=== PATIENT | male | born 1980 | race Caucasian/White ===

== ENCOUNTER → 2016-07-23 | Outpatient (CLI) | payer OTHER ==
[~2016-07-23] MED LIST: CLON2TAB3 PO; GABA-112 PO
[2016-07-23 11:27] LABS: BASO % 0.4 %; BASO ABS # 0.02 K/uL (0-0.2); COMPLETE YES; EOS % 1.6 %; HEMATOCRIT 43.4 % (42-52); IG% 0.2 %; LYMPH % 25.8 %; LYMPH ABS # 1.47 K/uL (1.2-3.4); MEAN CELL VOLUME 81.6 fL (80-100); MEAN CORPUSCULAR HEMOGLOBIN 28.6 pg (25-34); MONO % 7.4 %; NEUT % 64.6 %; PLATELET COUNT 191 K/uL (130-400); RED BLOOD COUNT 5.32 M/uL (4.7-6.1); WHITE BLOOD COUNT 5.69 K/uL (4.8-10.8)
== END | disposition home or self-care (01) ==
LOC: C.LABBC 09:28
PROVIDERS: ATTEND Orthopaedic Surgery Sports Medicine
DX: Z01.812 Encounter for preprocedural laboratory examination (principal)

== ENCOUNTER 2016-07-29 06:44 | Inpatient (IN) | payer OTHER, BC ==
[2016-07-21 09:16] VITALS: BMI 31.0
--- NOTE | 2016-07-28 13:17 | HISTORY & PHYSICAL EXAMINATION ---
DATE OF ADMISSION: 07/29/2016 CHIEF COMPLAINT: Back pain, right lower leg extremity difficulty. 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 He had a work-related injury on 04/04/2015 resulting in surgery and a re-do surgery in November of this year. He has done better after the initial surgery. However, he has had recurrence of his symptoms. He has on ongoing right-sided radicular symptoms consistent with his history. PAST MEDICAL HISTORY: Benign. PAST SURGICAL HISTORY: Includes right and left knee scope, hand surgery, discectomy and nasal surgery. ALLERGIES: No allergies to medications. CURRENT MEDICATIONS: None. FAMILY HISTORY: Negative for heart disease, stroke, diabetes, blood clots, DVTs or cancer. SOCIAL HISTORY: He is . Drinks 1-2 drinks a day. No tobacco very active lifestyle. REVIEW OF SYSTEMS: PSYCHIATRIC: Positive for sleep problems. NEUROLOGIC: Positive for numbness and tingling. MUSCULOSKELETAL: Positive for stiffness, weakness and muscle pain. PHYSICAL EXAMINATION: CONSTITUTIONAL: Alert and oriented x3. VITAL SIGNS: He is 5 foot 9 inches, 205 pounds. CARDIOVASCULAR: Brisk capillary refill in distal extremities. Normal S1, S2, no S3. RESPIRATORY: Equal and bilateral breath sounds. No rales, rhonchi or wheezes noted. GASTROINTESTINAL: Abdomen is soft, nontender to palpation and percussion. No organomegaly. INTEGUMENTARY: No skin rashes or lesions, ecchymosis or swelling. MUSCULOSKELETAL: Slight weakness with dorsiflexion of his right great toe. Sensory is slightly decreased as well. Reflex of his patella and Achilles were normal. He does have pain with straight leg raise on the right side versus the left. DATA: Diagnostic x-rays and images demonstrated a near collapse at L4-L5 lumbar interval. No scoliosis or spondylosis was noted. ASSESSMENT AND DIAGNOSES: Near collapse of the L4-L5 vertebral height with nerve root compromise. PLAN: At this time, he is being preoperatively prepared for a PLIF procedure at L4-L5. All his questions were reviewed and answered. We did discuss the surgery, expected outcomes as well. We did give him a back brace postoperatively. We gave him pain meds prior to admission to the hospital as well. The surgery is scheduled for 07/29/2016. Expect him 1-2 days in the hospital as an observation status.
[2016-07-29] VITALS (11 sets, daily range): BP systolic 105–148; BP diastolic 65–88; PULSE 80–120; TEMP 36.4–37; O2SAT 94–99; Ht 175.3 cm; Wt 95.5 kg
[~2016-07-29] VITALS: Ht 175.3 cm; Wt 95.5 kg
[~2016-07-29 06:44] MED LIST changes: +CEFAZOLIN 2000 MG/60 ML D5W 60 ML IV SCH; -CLON2TAB3 PO; +LACTATED RINGER'S 1000ML 1,000 ML IV SCH; +NSS 1000ML IV SCH
[2016-07-29] MEDS ORDERED: CLON2TAB3 PO (07:20)
[2016-07-29] MEDS ORDERED: ROCURONIUM BROMIDE 10 MG/ML 5 ML VIAL ONE (07:46)
[2016-07-29] MEDS ORDERED: PROPOFOL IV EMULSION 10 MG/ML 20 ML VIAL IV ONE (07:46)
[2016-07-29] MEDS ORDERED: NEOSTIGMINE METHYLSULFATE 5 MG/5 ML SYR ONE (07:46)
[2016-07-29] MEDS ORDERED: FENTANYL CITRATE INJ 50 MCG/1 ML 2 ML VIAL ONE ×3 (07:46→11:03)
[2016-07-29] MEDS ORDERED: ONDANSETRON INJ 2 MG/ML 2 ML VIAL ONE (07:46)
[2016-07-29] MEDS ORDERED: GLYCOPYRROLATE INJ 0.2 MG/ML VIAL ONE (07:46)
[2016-07-29] MEDS ORDERED: LIDOCAINE HCL 2% 2 ML VIAL (20MG/ML) ONE (07:46)
[2016-07-29] MEDS ORDERED: DEXAMETHASONE SOD INJ 4 MG/ML VIAL ONE (07:46)
[2016-07-29] MEDS ORDERED: MIDAZOLAM HCL 1 MG/ML 2ML VIAL ONE ×2 (07:46→11:04)
--- NOTE | 2016-07-29 07:56 | History & Physical Bridge Note ---
H&P Re-Evaluation Bridge Note: I have examined the patient, reviewed the History & Physical and in the interval since the performance of the History & Physical I have noted the following changes of clinical significance: No changes noted
[2016-07-29] MEDS ORDERED: HYDROmorphone INJ 2 MG/ML SYR/VIAL ONE (08:31)
[2016-07-29] MEDS ORDERED: ONDANSETRON INJ 2 MG/ML 2 ML VIAL IV PRN (09:15)
[2016-07-29] MEDS ORDERED: ATROPINE SULFATE 0.1 MG/ML 5ML SYR IV PRN (09:15)
[2016-07-29] MEDS ORDERED: EpHEDrine SULFATE INJ 50 MG/ML AMP IV PRN (09:15)
[2016-07-29] MEDS ORDERED: MEPERIDINE HCL 25 MG/ML CARP IV PRN (09:15)
[2016-07-29] MEDS ORDERED: NALOXONE HCL 0.4 MG/1 ML VIAL/CARP IV PRN ×2 (09:15→11:00)
[2016-07-29] MEDS ORDERED: FLUMAZENIL 0.1 MG/1 ML 10 ML VIAL IV PRN (09:15)
[2016-07-29] MEDS ORDERED: LABETALOL HCL IV 5 MG/ML 20ML IV PRN (09:15)
[2016-07-29] MEDS ORDERED: PHENYLEPHRINE 100MCG/ML 5ML SYR IV PRN (09:15)
[2016-07-29] MEDS ORDERED: EpHEDrine SULFATE 50MG/5ML SYR ONE (09:58)
[2016-07-29] MEDS ORDERED: VANCOMYCIN HCL 1000MG/20ML VIAL TOP ONE (10:02)
[2016-07-29] MEDS ORDERED: BUPIVACAINE/EPINEPHRINE 0.5% MPF 1:200,000 30 ML VIAL INJ ONE (10:02)
[2016-07-29] MEDS ORDERED: BACITRACIN 50000 UNIT VIAL IR ONE (10:25)
[2016-07-29] MEDS ORDERED: THROMBIN FOR SOLN 20000 UNIT KIT TOP ONE (10:25)
[2016-07-29] MEDS ORDERED: GELATIN SPONGE SZ 100 TOP ONE (10:25)
[2016-07-29] MEDS ORDERED: DURASEAL DURAL SEALANT 5ML TOP ONE (10:32)
--- NOTE | 2016-07-29 10:38 | DIAGNOSTIC IMAGING REPORT ---
INTRAOPERATIVE RADIOGRAPH CLINICAL HISTORY: L4-L5 spinal fusion. Fluoroscopy time: 7 seconds. FINDINGS: A single spot fluoroscopic view of the lumbar spine is presented. There is evidence of discectomy at L4-L5 with laminectomy and posterior fusion at this level. Interpedicular screws are present at both levels. Orthopedic hardware is grossly intact. IMPRESSION: Intraoperative image from L4 -L5 spinal fusion as above. Electronically signed by: Dave Tan M.D. 07/29/2016 10:36 AM Dictated Date/Time: 07/29/2016 10:35 AM
[2016-07-29] MEDS ORDERED: SODIUM CHLORIDE 0.9% 1000ML 1,000 ML IV SCH (10:50)
--- NOTE | 2016-07-29 10:52 | [facility] Post Operative Brief Note ---
Immediate Operative Summary Operative Date Jul 29, 2016. Pre-Operative Diagnosis Near collapse of the L4-L5 vertebral height with nerve root compromise. Post-Operative Diagnosis Same as preoperative Procedure(s) Performed L4-5 Decompression and Fusion Surgeon Dr. Kyle Bergeron Historian Research Assistant Surgeon(s) Joaquin Guillen PA-C Estimated Blood Loss 400ml Findings stenosis, instability Specimens None per surgeon Complication(s) None Disposition Recovery Room / PACU
[2016-07-29] MEDS ORDERED: HYDROmorphone HCL 0.5MG/ML 50 ML CASSETTE ONE (10:58)
[2016-07-29] MEDS ORDERED: LORAZEPAM INJ 1 MG in SYRINGE 0.5 ML IV PRN (11:00)
[2016-07-29] MEDS ORDERED: CLONAZEPAM 1 MG TAB PO PRN (11:00)
[2016-07-29] MEDS ORDERED: MAGNESIUM HYDROXIDE SUSP 30 ML UDC PO PRN (11:00)
[2016-07-29] MEDS ORDERED: LORAZEPAM 1 MG TAB PO PRN (11:00)
[2016-07-29] MEDS ORDERED: ACETAMINOPHEN 325 MG TAB PO PRN (11:00)
[2016-07-29] MEDS ORDERED: PROMETHAZINE HCL INJ 12.5 MG in SODIUM CHLORIDE 0.9% 50ML 50 ML IV PRN (11:00)
[2016-07-29] MEDS ORDERED: METOCLOPRAMIDE HCL INJ 5 MG/ML 2 ML VIAL IV PRN (11:00)
[2016-07-29] MEDS: HYDROmorphone INJ 1 MG/ML SYR IV PRN ×4 (11:16→11:31)
[2016-07-29] MEDS: MoRPHine SULFATE 10 MG/ML CARP/VIAL IV PRN ×5 (11:36→12:01)
--- NOTE | 2016-07-29 11:47 | OPERATIVE REPORT ---
DATE OF OPERATION: 07/29/2016 PREOPERATIVE DIAGNOSIS: Instability, stenosis at L4-L5 lumbar. POSTOPERATIVE DIAGNOSIS: Same. PROCEDURES: Lumbar laminectomy and discectomy at L4-L5, foraminotomy, partial facetectomy, decompression of both nerve roots, left and right, which really will be the L4 and L5. We then did a complete discectomy at L4-L5. We then instrumented the spine with pedicle screws at L4, pedicle screws at L5 and a posterior lumbar interbody fusion at L4-L5. SURGEON: Dr. Bergeron. NEWSPAPER EDITOR MANAGING: SHERIE Alcaraz. COMPLICATIONS: Zero. BLOOD LOSS: 300-400 mL. ANESTHETIC: General. DESCRIPTION OF PROCEDURE: The patient was taken to surgery after several month evaluation process, and evaluated good candidate for a posterior approach lumbar spine decompression, laminectomy and fusion L4-L5. He was scrubbed, prepped and draped sterile. We made a skin incision from L4 to the sacrum dissecting the soft tissue in the same plane. We took the soft tissue out over the transverse processes exposing the L4-L5 interval. We used revision technology, revision techniques to undercut the lamina above and below to really do a complete laminectomy at L4-L5. We did good foraminotomies, partial facetectomies on bilateral sides. The nerve roots were completely compressed. On the left hand side it was matted down with a lot of scar tissue. I was never able to get the jose angel into the intervertebral space, I thought it was too dangerous. The right side was furthermore readable, readily able to get a shaver into the space. I was able to do a discectomy from this side. I was able shave up to a size 10 with the Globus implants. We then safely got the pedicle screws in to L4, pedicle screws into L5, was happy with the length and positioning. We then were able to get an interbody device in at L4-L5. It was 10 mm in height, 10 in width, and about 26 mm in height. I first packed the L4-L5 disc interspace with significant amount of allograft and autograft. We then locked down the construct. We then began our closure. We irrigated thoroughly with about 1000 mL of normal saline. From a prophylactic measure, I placed some DuraSeal over the dura as well. I placed some Gelfoam as well. We bone grafted out over the transverse process to complete the 360 fusion. We closed the fascia to fascia with #1 Vicryl suture water tight fashion, 2-0 in the subcuticular layer, 3-0 nylon on the skin, sterile dressing applied. The patient returned to PACU stable. No apparent complications. Sponge and needle count correct at the close. IMPLANTS USED: By the [employer]. I attest to the content of the Intraoperative Record and any orders documented therein. Any exceptio ns are noted below.
--- NOTE | 2016-07-29 12:19 | Anesthesiology Progress Note ---
Anesthesia Post Op Note Date & Time Jul 29, 2016 at 12:19 Vital Signs Pain Intensity: 3 Vital Signs Past 12 Hours Date Time Temp Pulse Resp B/P Pulse Ox O2 Delivery O2 Flow Rate FiO2 07/29/16 12:15 87 16 150/76 100 Nasal Cannula 4 07/29/16 12:05 117 16 144/100 98 Nasal Cannula 4 07/29/16 11:55 108 16 134/96 96 Nasal Cannula 4 07/29/16 11:45 110 16 151/102 100 Nasal Cannula 4 07/29/16 11:35 95 16 168/96 100 Nasal Cannula 4 07/29/16 11:25 110 16 158/96 100 Nasal Cannula 4 07/29/16 11:15 106 16 151/90 100 Mask 10 07/29/16 11:05 109 16 141/75 100 Mask 10 07/29/16 10:56 36.4 98 16 140/85 100 Mask 10 07/29/16 07:23 37 80 18 148/88 98 Room Air Notes Mental Status: alert / awake / arousable, participated in evaluation Pt Amnestic to Procedure: Yes Nausea / Vomiting: adequately controlled Pain: adequately controlled Airway Patency, RR, SpO2: stable & adequate BP & HR: stable & adequate Hydration State: stable & adequate Anesthetic Complications: no major complications apparent
[2016-07-29] MEDS: HYDROmorphone HCL 0.5MG/ML 50 ML CASSETTE IV PRN ×3 (12:58→23:04)
[2016-07-29] MEDS: SODIUM CHLORIDE 0.9% 1000ML 1,000 ML IV SCH ×2 (13:04→23:46)
[2016-07-29] MEDS: ONDANSETRON INJ 2 MG/ML 2 ML VIAL IV PRN ×2 (13:49→17:45)
[2016-07-29] MEDS: CEFAZOLIN IV 2,000 MG in DEXTROSE 5% 50ML 50 ML IV SCH ×2 (15:39→23:39)
[2016-07-29 16:02] LABS: CREATININE 1.1 mg/dl (0.60-1.40)
[2016-07-29] MEDS: DEXAMETHASONE INJ 10 MG in SYRINGE 0 ML IV SCH ×2 (16:03→23:39)
[2016-07-29] MEDS: KETOROLAC TROMETHAMINE 30 MG/ML VIAL IV SCH ×2 (17:45→23:39)
[2016-07-29] MEDS: GABAPENTIN 100 MG CAP PO SCH (20:49)
[2016-07-30 04:38] VITALS: BP 121/71; PULSE 107; TEMP 37; O2SAT 95
[2016-07-30] MEDS: KETOROLAC TROMETHAMINE 30 MG/ML VIAL IV SCH ×3 (05:35→17:41)
[2016-07-30] MEDS ORDERED: BISACODYL 10 MG SUPP PR PRN (06:00)
[2016-07-30] MEDS ORDERED: BISACODYL 5 MG TABEC PO PRN (06:00)
[2016-07-30 07:18] VITALS: BP 145/83; PULSE 101; TEMP 36.8; O2SAT 95
[2016-07-30] MEDS ORDERED: HYDROmorphone INJ 2 MG/ML SYR/VIAL IV PRN (08:00)
[2016-07-30] MEDS ORDERED: DC PCA SCH (08:00)
[2016-07-30] MEDS ORDERED: OXYCODONE/ACETAMINOPHEN 5-325 TAB PO PRN (08:00)
[2016-07-30] MEDS: CEFAZOLIN IV 2,000 MG in DEXTROSE 5% 50ML 50 ML IV SCH (08:22)
--- NOTE | 2016-07-30 08:24 | Anesthesiology Progress Note ---
Anesthesia Post Op Note Date & Time Jul 30, 2016 at 08:25 Vital Signs Pain Intensity: 0.0 Vital Signs Past 12 Hours Date Time Temp Pulse Resp B/P Pulse Ox O2 Delivery O2 Flow Rate FiO2 07/30/16 07:18 36.8 101 18 145/83 95 Room Air 07/30/16 04:38 37.0 107 16 121/71 95 Room Air 07/29/16 23:45 Room Air 07/29/16 23:24 36.8 108 16 119/68 95 Room Air 07/29/16 22:45 120 Notes Mental Status: alert / awake / arousable, participated in evaluation Pt Amnestic to Procedure: Yes Nausea / Vomiting: adequately controlled Pain: adequately controlled Airway Patency, RR, SpO2: stable & adequate BP & HR: stable & adequate Hydration State: stable & adequate Anesthetic Complications: no major complications apparent
[2016-07-30] MEDS: POLYETHYLENE (MIRALAX) 17 GM PACK PO SCH (08:44)
[2016-07-30] MEDS: DEXAMETHASONE INJ 10 MG in SYRINGE 0 ML IV SCH ×3 (09:32→23:59)
[2016-07-30] MEDS: OXYCODONE/ACETAMINOPHEN 5-325 TAB PO PRN ×4 (09:33→23:58)
--- NOTE | 2016-07-30 10:08 | Discharge Instructions ---
Discharge Instructions Admission Reason for Admission: Lumbar Iv Disc Displacement Discharge Discharge Diagnosis / Problem: spinal fusion Discharge Goals Goal(s): Decrease discomfort, Improve function Activity Recommendations Activity Limitations: as noted below Lifting Limitations: until after follow-up appointment Exercise/Sports Limitations: until after follow-up appointment May Resume Sexual Activity: after follow-up appointment Shower/Bathe: keep incision dry home rest recover . Current Hospital Diet Patient's current hospital diet: Regular Diet Discharge Diet Recommended Diet: Regular Diet Procedures Procedures Performed: L4-5 Decompression and Fusion Pending Studies Studies pending at discharge: no Medical Emergencies . Who to Call and When: Medical Emergencies: If at any time you feel your situation is an emergency, please call 911 immediately. . Non-Emergent Contact Non-Emergency issues call your: Surgeon Call Non-Emergent contact if: you have any medication questions . "Provider Documentation" section prepared by Kyle Bergeron. VTE Core Measure Inpt VTE Proph given/why not?: Treatment not indicated
[2016-07-30 11:05] VITALS: BP 125/76; PULSE 103; TEMP 36.7
[2016-07-30] MEDS: HYDROmorphone INJ 1 MG/ML SYR IV PRN ×3 (12:14→19:49)
[2016-07-30] MEDS ORDERED: NURSING VERBAL MED ORDER ONE (12:30)
[2016-07-30 14:59] VITALS: BP 145/76; PULSE 102; TEMP 36.9; O2SAT 95
[2016-07-30] MEDS: GABAPENTIN 100 MG CAP PO SCH (21:42)
[2016-07-30 23:45] VITALS: BP 155/78; PULSE 94; TEMP 36.6; O2SAT 96
[2016-07-31] MEDS: OXYCODONE/ACETAMINOPHEN 5-325 TAB PO PRN ×2 (04:43→09:14)
[2016-07-31 07:02] VITALS: BP 134/86; PULSE 86; TEMP 36.6; O2SAT 96
[2016-07-31 07:26] VITALS: BP 155/78; PULSE 94; TEMP 36.6; O2SAT 96
[2016-07-31] MEDS: POLYETHYLENE (MIRALAX) 17 GM PACK PO SCH (09:13)
--- NOTE | 2016-08-11 07:18 | DISCHARGE SUMMARY ---
SUBJECTIVE: Moderate complaints of pain, no paralysis, shortness of breath, fevers, sweats or chills. Mentation normal. Wound clean and dry. Vital signs stable. ASSESSMENT: Status post lumbar fusion, doing well, short run. DISPOSITION: Includes instructions, precautions, education here today. Dressing is changed. Follow up in the office in 10 days. Prescriptions provided. Wound to be kept clean and dry.
== END 2016-07-31 11:59 | disposition home or self-care (01) | DRG 460 ==
LOC: ENRESERVDT → ENRESERVTM → C.ACU 06:44 → C.MSW 07:50
PROVIDERS: ADMIT Orthopaedic Surgery Orthopaedic Surgery of the Spine; ATTEND Orthopaedic Surgery Orthopaedic Surgery of the Spine
PROC: 0SG00AJ Fusion of Lumbar Vertebral Joint with Interbody Fusion Device, Posterior Approach, Anterior Column, Open Approach (ICD-10-PCS; principal; 2016-07-29 08:15)
PROC: 0SB20ZZ Excision of Lumbar Vertebral Disc, Open Approach (ICD-10-PCS; principal; 2016-07-29 08:15)
PROC: 0SG0071 Fusion of Lumbar Vertebral Joint with Autologous Tissue Substitute, Posterior Approach, Posterior Column, Open Approach (ICD-10-PCS; principal; 2016-07-29 08:15)
DX: M48.06 Spinal stenosis, lumbar region (principal)

== ENCOUNTER → 2016-12-11 | Outpatient (CLI) | payer BC ==
[~2016-12-11] MED LIST changes: -CEFAZOLIN 2000 MG/60 ML D5W 60 ML IV SCH; +CLON2TAB3 PO; -LACTATED RINGER'S 1000ML 1,000 ML IV SCH; -NSS 1000ML IV SCH
[2016-12-11 12:42] LABS: BASO % 0.5 %; BASO ABS # 0.03 K/uL (0-0.2); COMPLETE YES; EOS % 1.6 %; HEMATOCRIT 44.4 % (42-52); IG% 0.2 %; LYMPH % 26.8 %; LYMPH ABS # 1.71 K/uL (1.2-3.4); MEAN CELL VOLUME 75.8 fL (80-100); MEAN CORPUSCULAR HEMOGLOBIN 25.8 pg (25-34); MEAN PLATELET VOLUME 11.2 fL (7.4-10.4); MONO % 7.2 %; NEUT % 63.7 %; PLATELET COUNT 196 K/uL (130-400); RED BLOOD COUNT 5.86 M/uL (4.7-6.1); WHITE BLOOD COUNT 6.38 K/uL (4.8-10.8)
--- NOTE | 2016-12-11 13:45 | DIAGNOSTIC IMAGING REPORT ---
Soft tissue neck ULTRASOUND HISTORY: Adenopathy CERVICAL LYMPHADENITIS, WENT TO LAB FIRST COMPARISON: None. FINDINGS: Several generally benign-appearing lymph nodes throughout the cervical chains bilaterally. Largest measures 1.5 cm. These have generally benign morphology characteristics. IMPRESSION: Several low suspicion cervical nodes. Statistically is most consistent with that of cervical adenitis. This does not resolve, fine-needle aspiration would be indicated. Electronically signed by: Houston Zhong M.D. 12/11/2016 1:44 PM Dictated Date/Time: 12/11/2016 1:42 PM
== END | disposition home or self-care (01) ==
LOC: C.MRI 11:55
PROVIDERS: ATTEND Nurse Practitioner Family
DX: I88.9 Nonspecific lymphadenitis, unspecified (principal)

== ENCOUNTER → 2016-12-16 | Outpatient (CLI) | payer BC ==
--- NOTE | 2016-12-16 08:09 | DIAGNOSTIC IMAGING REPORT ---
CT NECK WITHOUT INTRAVENOUS CONTRAST HISTORY: Swelling and pain in neck. Acute lymphadenitis. TECHNIQUE: Multiaxial CT images of the neck are performed without the use of intravenous contrast. COMPARISON STUDY: Thyroid ultrasound 12/11/2016. FINDINGS: The visualized brain parenchyma and orbits are unremarkable. No fluid levels within the paranasal sinuses. Old nasal bone fractures. Postoperative changes within the paranasal sinuses. The mastoid air cells are clear. The lung apices are clear. Mild degenerative disc disease at C5-C6 and C6-C7. Prevertebral soft tissues and the epiglottis are normal in thickness. The thyroid gland is normal in size. Normal left parotid gland and right submandibular gland. There is an atrophic left submandibular gland containing a 1 cm stone. The major mucosal airway surfaces are intact. Punctate calcification within the right palatine tonsil. Multiple subcentimeter left cervical lymph nodes which do not meet CT criteria for pathologic involvement. There are few enlarged right cervical lymph nodes. There are 2 nodules along the inferior aspect of the right parotid gland which may also represent enlarged lymph nodes. Dominant nodule measures 1.4 x 1.1 cm. Subcutaneous nodule within the right posterior neck on image 162 which measures 1.3 x 1.1 cm. This could also represent an enlarged lymph node. Mild right neck subcutaneous edema. There are few mildly enlarged right lower cervical lymph nodes with the dominant lymph node measuring 1.5 x 1.1 cm. Overall, there are suboptimal evaluation the neck due to the lack of intravenous contrast. IMPRESSION: 1. Mild nonspecific right cervical lymphadenopathy and subcutaneous edema as described above. There are 2 enlarged soft tissue nodules within the lower aspect of the right parotid gland which also favor mildly enlarged lymph nodes. Clinical follow-up is recommended to ensure resolution. Consider fine-needle aspiration if the lymphadenopathy continues to persist. 2. Atrophic left submandibular gland containing a 1 cm stone. Electronically signed by: Miguel Cheney M.D. 12/16/2016 8:07 AM Dictated Date/Time: 12/16/2016 7:58 AM
== END | disposition home or self-care (01) ==
LOC: C.CTS 07:15
PROVIDERS: ATTEND Nurse Practitioner
DX: L04.0 Acute lymphadenitis of face, head and neck (principal); K11.5 Sialolithiasis; M50.322 Other cervical disc degeneration at C5-C6 level; M50.323 Other cervical disc degeneration at C6-C7 level

== ENCOUNTER 2017-02-02 08:41 | Day surgery (SDC) | payer OTHER, BC ==
[2017-02-02] VITALS (11 sets, daily range): BP systolic 124–162; BP diastolic 63–89; PULSE 67–76; TEMP 36.9–37; O2SAT 96–98; Ht 175.3 cm; Wt 100.0 kg
[~2017-02-02] VITALS: Ht 175.3 cm; Wt 100.0 kg
--- NOTE | 2017-02-02 09:58 | Discharge Instructions ---
Discharge Instructions Procedure Procedure Date: Feb 02, 2017. Reason for visit: Lumbar Spinal Stenosis. Discharge Discharge Date: Feb 02, 2017. Discharge Diagnosis: s/p lumbar myelogram Instructions Activity Recommendations: 1 Day-May resume regular activity, 48 Hours of decreased exertion Return to School/Work: no limitations Recommended Home Diet: No Limitations Provider Instructions: ACTIVITY RECOMMENDATIONS: * Rest today. * Resume regular activity in one day. MEDICATIONS: * May take Tylenol or Ibuprofen as needed for pain. DIET: * Resume previous diet. SPECIAL CARE INSTRUCTIONS: Call your doctor if: * Temperature above 101 degrees F. * Pain not relieved by pain medicine ordered. * Increased drainage or redness from incision. * Notify your doctor with any questions or concerns. Call your doctor or go to the nearest Emergency Department if you experience: * Increased chest pain or shortness of breath. FOLLOW UP VISIT: Follow-up with Referring Physician as scheduled. Allergies Coded Allergies: NO KNOWN DRUG ALLERGIES (Verified Allergy, Mild, ., 07/29/16) Nicki Mcclendon Recommendations: Call your doctor if: * Temperature above 101 degrees * Pain not relieved by pain medicine ordered * There is increased drainage or redness from any incision * You have any unanswered questions or concerns. Your Doctors Instructions noted above were prepared by provider Ced Hernandez. Patient Signature Section: Patient Instructions Signature Page Pepito Moore Patient (or Guardian) Signature/Date: I have read and understand the instructions given to me by my caregivers. Caregiver/RN/Doctor Signature/Date: The above-named patient and/or guardian has received patient instructions on this date. + Original Patient Signature Page (only) stays with chart. Please make copy for patient.
--- NOTE | 2017-02-02 10:11 | DIAGNOSTIC IMAGING REPORT ---
FLUOROSCOPICALLY GUIDED MYELOGRAM CLINICAL HISTORY: Lumbar spinal stenosis. Back pain. COMPARISON STUDY: Lumbar spine MRI April 16, 2016 and lumbar spine radiographs January 12, 2017. Fluoroscopy time: 0.7 minutes. FINDINGS: 3 fluoroscopic images were obtained. The procedure, risks and benefits were discussed with the patient including the risk of spinal headache, bleeding and infection as well as seizure. The patient agreed to the procedure and informed written consent was obtained. The procedure was performed by Dr. Hernandez following a timeout. Skin of the lower back was prepped and draped in sterile fashion and local anesthesia was achieved with 1% lidocaine. Under intermittent fluoroscopic guidance, a 3 1/2 inch 22-gauge spinal needle was directed into the thecal sac through the L4-L5 laminectomy. There was immediate return of CSF. At this time, 10 cc of Isovue-M 200 was instilled into the thecal sac. The needle was removed. Lateral view demonstrates ventral indentation at several levels of the thecal sac. The patient tolerated the procedure well and no immediate complications were evident. IMPRESSION: Fluoroscopically guided lumbar myelogram, as described above. Electronically signed by: Ced Hernandez M.D. 02/02/2017 10:09 AM Dictated Date/Time: 02/02/2017 10:00 AM
[2017-02-02] MEDS ORDERED: ACETAMINOPHEN 500 MG TAB PO ONE (10:30)
[2017-02-02] MEDS ORDERED: NURSING VERBAL MED ORDER ONE (10:30)
--- NOTE | 2017-02-02 10:34 | DIAGNOSTIC IMAGING REPORT ---
CT LUMBAR MYELOGRAM CLINICAL HISTORY: Back pain. Lumbar spinal stenosis. COMPARISON STUDY: MRI of the lumbar spine April 16, 2016 and lumbar spine radiographs January 12, 2017. TECHNIQUE: Following a fluoroscopically guided lumbar puncture with myelogram, axial unenhanced images through the lumbar spine were obtained. Sagittal and coronal reconstructions were viewed. FINDINGS: There are postsurgical findings consistent with an L4-L5 discectomy with interbody spacer placement. There is a posterior decompression with bilateral pedicle screws at the L4 and L5 levels. The hardware is intact. The left L5 pedicle screw slightly extends through the anterior cortex of the vertebral body. There is no fracture. No suspicious lesion is present. Paravertebral soft tissues are unremarkable. Mixing of contrast within the thecal sac is suboptimal. There are possible bilateral L4 pars defects which are difficult to assess given postsurgical change. L1-L2: The central canal and neural foramen are patent. L2-L3: There is mild disc bulge. This results in mild to moderate narrowing of the central canal. There is minimal narrowing of the bilateral neural foramen. L3-L4: Disc bulge is noted that results in mild to moderate narrowing of the central canal. There is mild narrowing of both neural foramen. L4-L5: Postoperative changes are noted. There is no residual central canal stenosis. There is mild narrowing of both neural foramen. L5-S1: The central canal and neural foramen are patent. IMPRESSION: 1. Status post L4-L5 discectomy, laminectomy and bilateral pedicles screw fusion. Hardware intact. 2. Mild to moderate central canal stenosis at L2-L3 and L3-4 due to disc bulges. 3. Mild multilevel neural foraminal stenosis. Electronically signed by: Ced Hernandez M.D. 02/02/2017 10:32 AM Dictated Date/Time: 02/02/2017 10:09 AM
[2017-02-02] MEDS ORDERED: ACETAMINOPHEN 500 MG TAB PO PRN (10:45)
== END 2017-02-02 14:04 | disposition home or self-care (01) ==
LOC: C.ACU 08:41
PROVIDERS: ATTEND Orthopaedic Surgery Orthopaedic Surgery of the Spine
DX: M48.06 Spinal stenosis, lumbar region (principal)

== ENCOUNTER 2017-06-16 17:56 | Emergency (ER) | payer BC, OTHER ==
[~2017-06-16] VITALS: Ht 175.3 cm; Wt 88.0 kg
[~2017-06-16 17:56] MED LIST changes: -GABA-112 PO
[2017-06-16 18:03] VITALS: TEMP 36.7; Ht 175.3 cm; Wt 88.0 kg
[2017-06-16] MEDS ORDERED: HYDROmorphone INJ 1 MG/ML SYR IV STA (18:28)
[2017-06-16] MEDS ORDERED: ONDANSETRON INJ 2 MG/ML 2 ML VIAL IV STA (18:28)
[2017-06-16] MEDS ORDERED: KETOROLAC TROMETHAMINE 30 MG/ML VIAL IV STA (18:28)
--- NOTE | 2017-06-16 18:36 | EMERGENCY ROOM VISIT NOTE ---
History Report prepared by Santhosh: Dnaiel Unger Under the Supervision of: Dr. Carl Mercado M.D. First contact with patient: 18:04 Chief Complaint: ABDOMINAL PAIN Stated Complaint: LOWER STOMACH PAIN,FEEL SICK Nursing Triage Summary: pt to the ED with c/o fevers left sided abd pain with pain now going into groin and testicle History of Present Illness The patient is a 37 year old male who presents to the Emergency Room with complaints of constant left sided abdominal pain that began 6 days ago. He rates his pain as a 6/10 in severity. He reports that his pain is worsened with lifting his knee. The patient states that he felt constipated 6 days ago. He states that this feeling continued throughout the weekend. He reports that the constipated feeling turned into left sided abdominal pain. The patient states that he felt as if he needed to urinated frequently. He states that he has also been experiencing nausea, diaphoresis, and a fever for the last two days. The patient states that the pain subsided but he admits he still feels "an odd feeling". He states that the pain is now into his groin and left testicle. The patient denies colonoscopy, abdominal surgeries, back pain, taking any medications. Source of History: patient Onset: 6 days ago Position: abdomen Symptom Intensity: 6/10 Timing: constant Modifying Factors (Worsening): other (lifting knee) Associated Symptoms: + fevers, + diaphoresis, + nausea, + urinary symptoms Review of Systems See HPI for pertinent positives & negatives. A total of 10 systems reviewed and were otherwise negative. Past Medical & Surgical Medical Problems: (1) HTN (hypertension) (2) Lumbar disc disease with radiculopathy Family History Patient reports no known family medical history. Social History Smoking Status: Never Smoker Alcohol Use: none Marital Status: Occupation Status: employed Current/Historical Medications Scheduled Amoxicillin & Pot Clavulanate (Augmentin 875-125 mg), 1 TAB PO BID Docusate Sodium (Colace), 1 CAP PO BID Metronidazole (Flagyl), 500 MG PO TID Senna (Senokot), 1 TAB PO HS Scheduled PRN Oxycodone/Acetaminophen 5MG/325MG (Percocet 5MG/325MG), 1-2 TABLETS PO Q6 PRN for Pain Allergies Coded Allergies: NO KNOWN DRUG ALLERGIES (Verified Allergy, Mild, ., 06/16/17) Physical Exam Vital Signs Date Time Temp Pulse Resp B/P (MAP) Pulse Ox O2 Delivery O2 Flow Rate FiO2 06/16/17 19:50 85 16 130/96 100 Room Air 06/16/17 18:03 36.7 102 18 162/99 99 Room Air Physical Exam GENERAL: Patient is a healthy-appearing well-nourished 37 year old male. HEAD: Normocephalic atraumatic EYES: Ocular movements intact pupils equal and react to light OROPHARYNX mucous membranes are moist no exudates present no erythema or edema present NECK: Supple no nuchal rigidity CHEST: Good equal expansion LUNGS: Clear and equal to auscultation CARDIAC: Normal S1 and S2 ABDOMEN: Soft tender left lower quadrant no guarding BACK: No CVA tenderness EXTREMITIES: No pain upon palpation normal muscle strength in all groups no clubbing cyanosis or edema NEURO: Patient is following commands and answering questions appropriately. Alert and oriented x3 Cranial Nerves 2-12 grossly intact Medical Decision & Procedures ER Provider Diagnostic Interpretation: CT results as stated below per my review and radiologist interpretation: ABDOMEN AND PELVIS CT WITH IV CONTRAST CT DOSE: 340.38 mGy.cm HISTORY: Left lower quadrant abdominal pain. TECHNIQUE: Multiaxial CT images of the abdomen and pelvis were performed following the use of intravenous contrast. A dose lowering technique was utilized adhering to the principles of ALARA. COMPARISON STUDY: None. FINDINGS: The lung bases are clear. Posterior decompression fusion at L4-L5 with pedicle screws and rods. The liver, gallbladder, adrenal glands, kidneys, and pancreas are unremarkable. The spleen is borderline enlarged. No evidence for bowel obstruction. Normal appendix. No retroperitoneal lymphadenopathy. Normal bladder. Small fat-containing bilateral inguinal hernias. Focal thickening within the proximal sigmoid colon with adjacent pericolonic fat stranding. Findings are consistent with acute diverticulitis. There a few punctate foci of extraluminal gas consistent with microperforation. No abscess identified at this time. IMPRESSION: Acute sigmoid diverticulitis. There are few punctate foci of extraluminal gas consistent with microperforation. No abscess identified. Electronically signed by: Miguel Cheney M.D. 06/16/2017 7:33 PM Dictated Date/Time: 06/16/2017 7:21 PM Laboratory Results 06/16/17 18:52 Red Blood Count 4.96, Mean Corpuscular Volume 82.9, Mean Corpuscular Hemoglobin 27.6, Mean Corpuscular Hemoglobin Concent 33.3, Mean Platelet Volume 10.8, Neutrophils (%) (Auto) 64.5, Lymphocytes (%) (Auto) 26.1, Monocytes (%) (Auto) 6.9, Eosinophils (%) (Auto) 1.7, Basophils (%) (Auto) 0.6, Neutrophils # (Auto) 3.39, Lymphocytes # (Auto) 1.37, Monocytes # (Auto) 0.36, Eosinophils # (Auto) 0.09, Basophils # (Auto) 0.03 06/16/17 18:52 Test 06/16/17 18:50 06/16/17 18:52 06/16/17 18:56 Urine Color YELLOW Urine Appearance CLEAR (CLEAR) Urine pH 5.0 (4.5-7.5) Urine Specific [place] 1.028 (1.000-1.030) Urine Protein NEG (NEG) Urine Glucose (UA) NEG (NEG) Urine Ketones NEG (NEG) Urine Occult Blood NEG (NEG) Urine Nitrite NEG (NEG) Urine Bilirubin NEG (NEG) Urine Urobilinogen NEG (NEG) Urine Leukocyte Esterase NEG (NEG) White Blood Count 5.25 K/uL (4.8-10.8) Red Blood Count 4.96 M/uL (4.7-6.1) Hemoglobin 13.7 g/dL (14.0-18.0) Hematocrit 41.1 % (42-52) Mean Corpuscular Volume 82.9 fL (80-100) Mean Corpuscular Hemoglobin 27.6 pg (25-34) Mean Corpuscular Hemoglobin Concent 33.3 g/dl (32-36) Platelet Count 273 K/uL (130-400) Mean Platelet Volume 10.8 fL (7.4-10.4) Neutrophils (%) (Auto) 64.5 % Lymphocytes (%) (Auto) 26.1 % Monocytes (%) (Auto) 6.9 % Eosinophils (%) (Auto) 1.7 % Basophils (%) (Auto) 0.6 % Neutrophils # (Auto) 3.39 K/uL (1.4-6.5) Lymphocytes # (Auto) 1.37 K/uL (1.2-3.4) Monocytes # (Auto) 0.36 K/uL (0.11-0.59) Eosinophils # (Auto) 0.09 K/uL (0-0.5) Basophils # (Auto) 0.03 K/uL (0-0.2) RDW Standard Deviation 43.3 fL (36.4-46.3) RDW Coefficient of Variation 14.4 % (11.5-14.5) Immature Granulocyte % (Auto) 0.2 % Immature Granulocyte # (Auto) 0.01 K/uL (0.00-0.02) Est Creatinine Clear Calc Drug Dose 122.4 ml/min Estimated GFR () 124.8 Estimated GFR (Non- 107.7 BUN/Creatinine Ratio 14.3 (10-20) Calcium Level 8.9 mg/dl (8.5-10.1) Total Bilirubin 0.5 mg/dl (0.2-1) Direct Bilirubin 0.1 mg/dl (0-0.2) Aspartate Amino Transf (AST/SGOT) 35 U/L (15-37) Alanine Aminotransferase (ALT/SGPT) 108 U/L (12-78) Alkaline Phosphatase 58 U/L (45-117) Total Protein 7.4 gm/dl (6.4-8.2) Albumin 3.4 gm/dl (3.4-5.0) Lipase 118 U/L (73-393) Bedside Hemoglobin 13.6 g/dl (14.0-18.0) Bedside Hematocrit 40 % (42-52) Bedside Sodium 143 mEq/L (135-144) Bedside Potassium 3.6 mEq/L (3.3-5.0) Bedside Chloride 103 mEq/L (101-112) Bedside Total CO2 27 mEq/l (24-31) Anion Gap 18.0 mmol/L (16-25) Bedside Blood Urea Nitrogen 11 mg/dl (7-18) Bedside Creatinine 0.8 mg/dl (0.6-1.3) Bedside Glucose (other) 96 mg/dl (70-99) Bedside Ionized Calcium (Isa) 1.17 mmol/l (1.12-1.32) Labs reviewed by ED physician. Medications Administered Medications (Trade) Dose Ordered Sig/Tigre Route Start Time Stop Time Status Last Admin Dose Admin Hydromorphone HCl (Dilaudid Inj) 1 mg NOW STAT IV 06/16/17 18:28 06/16/17 18:31 DC 06/16/17 18:53 1 MG Ketorolac Tromethamine (Toradol Inj) 30 mg NOW STAT IV 06/16/17 18:28 06/16/17 18:31 DC 06/16/17 18:28 30 MG Ondansetron HCl (Zofran Inj) 4 mg NOW STAT IV 06/16/17 18:28 06/16/17 18:31 DC 06/16/17 18:52 4 MG Amoxicillin/ Clavulanate Potassium (Augmentin Tab) 875 mg ONE ONCE PO 06/16/17 19:45 06/16/17 19:46 DC 06/16/17 19:49 875 MG Metronidazole (Flagyl Tab) 500 mg NOW STAT PO 06/16/17 19:42 06/16/17 19:43 DC 06/16/17 19:49 500 MG Oxycodone/ Acetaminophen (Percocet 5/ 325MG Home Pack) 1 homepack UD STAT PO 06/16/17 20:06 06/16/17 20:07 DC 06/16/17 20:18 1 HOMEPACK ED Course 1823: Past medical records reviewed. The patient was evaluated in room C05. A complete history and physical examination was performed. 1825: I recommended a testicular exam, but the patient refused. 1827: Ordered Zofran Injection 4 mg IV, Toradol Injection 30 mg IV, Dilaudid Injection 1 mg IV. 1935: I discussed the patients case with Dr. Burkett, [facility]. He suggests that the patient follow up in the office tomorrow. 1941: Ordered Flagyl Tab 500 mg PO. 1944: Ordered Augmentin Tab 875 mg PO. 1947: I reevaluated the patient and updated him on his results. 2005: Ordered Oxycodone/Acetaminophen 1 homepack PO. Medical Decision Differential diagnosis: Etiologies such as appendicitis, diverticulitis, PUD, biliary pathology, UTI, pancreatitis, obstruction, mesenteric ischemia, aortic pathology, infections, inflammatory bowel disease, renal colic, as well as others were entertained. This is a 37-year-old male who presents emergency department complaining of left lower quadrant abdominal pain. Serial abdominal examinations were performed on the patient in the emergency department and at no time did the patient exhibited a surgical abdomen. The patient refused a scrotal exam on examination. He does not have an elevation in his white blood count cell count. He is afebrile. He was given Dilaudid and Toradol for the pain. Repeat examination revealed improvement the patient's symptoms. The patient's CAT scan is concerning for diverticulitis with microperforation however based on the fact that the patient is nontende's on examination based on the fact that he is afebrile along with the fact that he does not have an elevation in the white blood cell count I felt he can be safely discharged home for close follow-up with surgery tomorrow. I did discuss this with Dr. Burkett who agreed. I will place the patient on both Augmentin as well as Flagyl. He was strongly cautioned about tricking alcohol with Flagyl. He is going to follow- up with Dr. Burkett tomorrow as well as gastroenterology. Medication Reconcilliation Current Medication List: was personally reviewed by me Blood Pressure Screening Patient's blood pressure: Elevated blood pressure Blood pressure disposition: Elevated BP felt to be situational Consults Time Called: 1933 Consulting Physician: Dr. Burkett, [facility] Returned Call: 1933 1935: I discussed the patients case with Dr. Burkett, [facility]. He suggests that the patient follow up in the office tomorrow. Impression Primary Impression: Diverticulitis Scribe Attestation The scribe's documentation has been prepared under my direction and personally reviewed by me in its entirety. I confirm that the note above accurately reflects all work, treatment, procedures, and medical decision making performed by me. Departure Information Dispostion Home / Self-Care Prescriptions Docusate Sodium (COLACE) 100 Mg Cap 1 CAP PO BID for 30 Days, #60 CAP Prov: Carl Mercado MD 06/16/17 Senna (Senokot) 8.6 Mg Tab 1 TAB PO HS for 30 Days, #30 TAB Prov: Carl Mercado MD 06/16/17 Oxycodone/Acetaminophen 5MG/325MG (PERCOCET 5MG/325MG) Tab 1-2 TABLETS PO Q6 Y for Pain, #14 TAB PAIN Prov: Carl Mercado MD 06/16/17 Metronidazole (FLAGYL) 500 Mg Tab 500 MG PO TID for 10 Days, #30 TAB Prov: Carl Mercado MD 06/16/17 Amoxicillin & Pot Clavulanate (Augmentin 875-125 mg) 1 Tab Tab 1 TAB PO BID for 10 Days, #20 TAB Prov: Carl Mercado MD 06/16/17 Referrals No Doctor, Assigned (PCP) Patient Instructions Diverticulitis Dc, Diverticulosis Diverticulitis, [facility] Additional Instructions Follow up with DR Burkett's office tomorrow Follow up with DR Cordova's office Return if you develop severe abd pain or fevers You have been examined and treated today on an emergency basis only. This is not a substitute for, or an effort to provide, complete comprehensive medical care. It is impossible to recognize and treat all injuries or illnesses in a single emergency department visit. It is therefore important that you follow up closely with your PCP. Call as soon as possible for an appointment. Thank you for your time and consideration. I look forward to speaking with you again soon. Please don't hesitate to call us if you have any questions.
[2017-06-16] MEDS ORDERED: OPTIRAY 320 IV PRN (18:45)
[2017-06-16 19:03] LABS: BASO % 0.6 %; BASO ABS # 0.03 K/uL (0-0.2); COMPLETE YES; EOS % 1.7 %; HEMATOCRIT 41.1 % (42-52); IG% 0.2 %; LYMPH % 26.1 %; LYMPH ABS # 1.37 K/uL (1.2-3.4); MEAN CELL VOLUME 82.9 fL (80-100); MEAN CORPUSCULAR HEMOGLOBIN 27.6 pg (25-34); MEAN CORPUSCULAR HGB CONC 33.3 g/dl (32-36); MEAN PLATELET VOLUME 10.8 fL (7.4-10.4); MONO % 6.9 %; NEUT % 64.5 %; PLATELET COUNT 273 K/uL (130-400); RED BLOOD COUNT 4.96 M/uL (4.7-6.1); WHITE BLOOD COUNT 5.25 K/uL (4.8-10.8)
[2017-06-16 19:08] LABS: ISTAT CREATININE 0.8 mg/dl (0.6-1.3); ISTAT HEMOGLOBIN 13.6 g/dl (14.0-18.0); ISTAT IONIZED CALCIUM 1.17 mmol/l (1.12-1.32)
[2017-06-16 19:27] LABS: BUN/CREATININE RATIO 14.3 (10-20); CALCIUM 8.9 mg/dl (8.5-10.1); CREATININE 0.89 mg/dl (0.60-1.40); POTASSIUM 3.6 mmol/L (3.5-5.1)
[2017-06-16 19:29] LABS: URINE APPEARANCE CLEAR (CLEAR); URINE BILIRUBIN NEG (NEG); URINE COLOR YELLOW; URINE NITRITE NEG (NEG); URINE SPECIFIC GRAVITY 1.028 (1.000-1.030); UROBILINOGEN NEG (NEG); ZZUR CULT IF INDIC CLEAN CATCH NO
[2017-06-16 19:32] LABS: MANUAL MICROSCOPIC REQUIRED? NO; REVIEW REQ? NO
--- NOTE | 2017-06-16 19:34 | DIAGNOSTIC IMAGING REPORT ---
ABDOMEN AND PELVIS CT WITH IV CONTRAST CT DOSE: 340.38 mGy.cm HISTORY: Left lower quadrant abdominal pain. TECHNIQUE: Multiaxial CT images of the abdomen and pelvis were performed following the use of intravenous contrast. A dose lowering technique was utilized adhering to the principles of ALARA. COMPARISON STUDY: None. FINDINGS: The lung bases are clear. Posterior decompression fusion at L4-L5 with pedicle screws and rods. The liver, gallbladder, adrenal glands, kidneys, and pancreas are unremarkable. The spleen is borderline enlarged. No evidence for bowel obstruction. Normal appendix. No retroperitoneal lymphadenopathy. Normal bladder. Small fat-containing bilateral inguinal hernias. Focal thickening within the proximal sigmoid colon with adjacent pericolonic fat stranding. Findings are consistent with acute diverticulitis. There a few punctate foci of extraluminal gas consistent with microperforation. No abscess identified at this time. IMPRESSION: Acute sigmoid diverticulitis. There are few punctate foci of extraluminal gas consistent with microperforation. No abscess identified. Electronically signed by: Miguel Cheney M.D. 06/16/2017 7:33 PM Dictated Date/Time: 06/16/2017 7:21 PM
[2017-06-16] MEDS ORDERED: METRONIDAZOLE 250 MG TAB PO STA (19:42)
[2017-06-16] MEDS ORDERED: AMOXICILLIN/CLAVULANATE TAB 875 MG TAB PO ONE (19:45)
[2017-06-16 19:50] VITALS: BP 130/96; PULSE 85; O2SAT 100
[2017-06-16] MEDS ORDERED: METR500T PO (20:04)
[2017-06-16] MEDS ORDERED: AMOX875T PO (20:04)
[2017-06-16] MEDS ORDERED: DOCU-94 PO (20:04)
[2017-06-16] MEDS ORDERED: OXYC-57 PO (20:04)
[2017-06-16] MEDS ORDERED: SENN-61 PO (20:04)
[2017-06-16] MEDS ORDERED: PERCOCET HOME PACK PO STA (20:06)
== END 2017-06-16 20:22 | disposition home or self-care (01) ==
LOC: C.EDB 17:57 → C.EDC 20:22
DX: K57.32 Diverticulitis of large intestine without perforation or abscess without bleeding (principal); I10 Essential (primary) hypertension; M51.16 Intervertebral disc disorders with radiculopathy, lumbar region

== ENCOUNTER 2017-08-27 22:15 | Emergency (ER) | payer BC ==
[~2017-08-27] VITALS: Ht 175.3 cm; Wt 83.9 kg
[~2017-08-27 22:15] MED LIST changes: -CLON2TAB3 PO; +DOCU-94 PO; +OXYC-57 PO
[2017-08-27 22:18] VITALS: TEMP 36.8; Ht 175.3 cm; Wt 83.9 kg
[2017-08-27] MEDS ORDERED: KETOROLAC TROMETHAMINE 30 MG/ML VIAL IV STA (22:26)
[2017-08-27] MEDS ORDERED: SODIUM CHLORIDE 0.9% 1000ML 1,000 ML IV STA (22:26)
[2017-08-27] MEDS ORDERED: ONDANSETRON INJ 2 MG/ML 2 ML VIAL IV STA (22:26)
[2017-08-27 23:06] LABS: BASO % 0.4 %; BASO ABS # 0.01 K/uL (0-0.2); EOS % 0.4 %; EOS ABS # 0.01 K/uL (0-0.5); HEMATOCRIT 41.4 % (42-52); HEMOGLOBIN 14.2 g/dL (14.0-18.0); LYMPH % 38.4 %; LYMPH ABS # 0.98 K/uL (1.2-3.4); MEAN CELL VOLUME 81.2 fL (80-100); MEAN CORPUSCULAR HEMOGLOBIN 27.8 pg (25-34); MEAN CORPUSCULAR HGB CONC 34.3 g/dl (32-36); MEAN PLATELET VOLUME 11.6 fL (7.4-10.4); MONO % 10.6 %; MONO ABS # 0.27 K/uL (0.11-0.59); NEUT % 50.2 %; NEUT ABS # 1.28 K/uL (1.4-6.5); PLATELET COUNT 180 K/uL (130-400); RED CELL DISTRIBUTION WIDTH CV 14.4 % (11.5-14.5); RED CELL DISTRIBUTION WIDTH SD 42.5 fL (36.4-46.3); WHITE BLOOD COUNT 2.55 K/uL (4.8-10.8)
[2017-08-27 23:36] LABS: ALBUMIN 3.5 gm/dl (3.4-5.0); CALCIUM 8.1 mg/dl (8.5-10.1); CREATININE 0.99 mg/dl (0.60-1.40); POTASSIUM 3.7 mmol/L (3.5-5.1)
[2017-08-27] MEDS ORDERED: MoRPHine SULFATE 4 MG/ML 1 ML CARP\\VIAL IV STA (23:53)
[2017-08-28] MEDS ORDERED: OPTIRAY 320 IV PRN (01:15)
[2017-08-28 02:31] VITALS: BP 152/74
[2017-08-28 02:39] VITALS: PULSE 74; O2SAT 98
[2017-08-28] MEDS ORDERED: LEVO-366 PO (02:42)
[2017-08-28] MEDS ORDERED: LEVOFLOXACIN 250 MG TAB PO ONE (02:45)
[2017-08-28] MEDS ORDERED: ONDANSETRON HOME PACK 4MG OD TAB PO ONE (02:45)
[2017-08-28] MEDS ORDERED: OXYCODONE IR HOME PACK PO ONE (02:45)
--- NOTE | 2017-08-28 03:01 | EMERGENCY ROOM VISIT NOTE ---
History First contact with patient: 22:20 Chief Complaint: GI ASSESSMENT Stated Complaint: DIVERTICULITIS Nursing Triage Summary: Pt presents with LLQ pain that started on Tu. Fever of 101 since . Pt states, "I have been feeling sick to my stomach and I started to get diarrhea tonight. I was here three months ago for diverticulitis. I have the chills and aches too." History of Present Illness The patient is a 37 year old male who presents to the Emergency Room with complaints of left lower quadrant pain and left testicular discomfort for the past few days. He describes the pain as discomfort, ranging in severity 5 out of 10. Nothing makes it better or worse. He goes from his left lower quadrant to his testicle. Patient also complains of a low-grade fever of 101 yesterday and none today. He has not taken anything for fever reduction or for pain today. He has an appointment on the of this month for colonoscopy with GI. He had diverticulitis a few months ago but states this feels slightly different. Patient is in a monogamous relationship. He complains of urinary frequency. Patient denies flank pain, chest pain, dyspnea, vomiting, diarrhea, dysuria, hematuria, cough, congestion. He does complain of urinary frequency. No prior problems with his prostate. Review of Systems An 10 system review of systems was completed with positives and pertinent negatives listed in the HPI. Past Medical/Surgical History Medical Problems: (1) HTN (hypertension) (2) Lumbar disc disease with radiculopathy Diverticulitis Family History Patient reports no known family medical history. Social History Smoking Status: Never Smoker Alcohol Use: none Drug Use: none Marital Status: Housing Status: lives with family Occupation Status: employed Current/Historical Medications Scheduled Levofloxacin (Levaquin), 500 MG PO DAILY Physical Exam Vital Signs Date Time Temp Pulse Resp B/P (MAP) Pulse Ox O2 Delivery O2 Flow Rate FiO2 08/28/17 02:39 74 18 98 08/28/17 02:31 152/74 08/28/17 02:24 74 98 08/28/17 02:19 78 14 98 08/28/17 02:04 70 98 08/28/17 02:02 142/70 08/28/17 01:49 73 98 08/28/17 01:34 74 98 08/28/17 01:31 141/92 08/28/17 01:04 78 98 08/28/17 00:49 78 99 08/28/17 00:44 155/89 08/27/17 23:50 73 22 98 08/27/17 23:45 72 23 98 08/27/17 23:31 144/84 08/27/17 23:30 72 16 98 08/27/17 23:15 81 20 98 Room Air 08/27/17 23:01 139/89 08/27/17 22:40 75 08/27/17 22:18 36.8 87 18 151/108 99 Room Air Physical Exam VITALS: Vitals are noted on the nurse's note and reviewed by myself. Vital signs hypertensive GENERAL: Pleasant male, in no acute distress, nondiaphoretic, well-developed well-nourished. SKIN: The skin was without rashes, erythema, edema, or bruising. There is no tenting of the skin. Capillary reflex less than 2 seconds. HEAD: Normocephalic atraumatic. EARS: External auditory canals clear EYES: Pupils equal round and reactive to light and accommodation. Conjunctivae without injection, sclerae without icterus. Extraocular movements intact. NOSE: Patent, turbinates without inflammation or discharge. MOUTH: Mucous membranes moist. Pharynx without erythema or exudate. Uvula midline. Airway patent. Tongue does not deviate. NECK: Supple without nuchal rigidity. No lymphadenopathy. No thyromegaly. Cervical spine is nontender. No JVD. HEART: Regular rate and rhythm without murmurs gallops or rubs. LUNGS: Clear to auscultation bilaterally without wheezes, rales or rhonchi. No retractions or accessory muscle use. ABDOMEN: Positive bowel sounds x 4. Normal tympanic percussion. Soft, minimally tender to palpation left lower quadrant, without masses or organomegaly. Macias sign negative. No guarding or rebound tenderness. No CVA tenderness exam: Left epididymis tender to palpation easily reproducing symptoms, right testicle nontender, online marketer present. no rashes. Cremasteric reflex intact MUSCULOSKELETAL: No muscle atrophy, erythema, or edema noted. NEURO: Patient was alert and oriented to person place and time. Normal sensation to light and sharp touch. No focal neurological deficits. Medical Decision & Procedures Laboratory Results 08/27/17 22:54 Red Blood Count 5.10, Mean Corpuscular Volume 81.2, Mean Corpuscular Hemoglobin 27.8, Mean Corpuscular Hemoglobin Concent 34.3, Mean Platelet Volume 11.6, Neutrophils (%) (Auto) 50.2, Lymphocytes (%) (Auto) 38.4, Monocytes (%) (Auto) 10.6, Eosinophils (%) (Auto) 0.4, Basophils (%) (Auto) 0.4, Neutrophils # (Auto ) 1.28, Lymphocytes # (Auto) 0.98, Monocytes # (Auto) 0.27, Eosinophils # (Auto ) 0.01, Basophils # (Auto) 0.01 08/27/17 22:54 Test 08/27/17 22:54 08/27/17 23:01 08/28/17 01:05 White Blood Count 2.55 K/uL (4.8-10.8) Red Blood Count 5.10 M/uL (4.7-6.1) Hemoglobin 14.2 g/dL (14.0-18.0) Hematocrit 41.4 % (42-52) Mean Corpuscular Volume 81.2 fL (80-100) Mean Corpuscular Hemoglobin 27.8 pg (25-34) Mean Corpuscular Hemoglobin Concent 34.3 g/dl (32-36) Platelet Count 180 K/uL (130-400) Mean Platelet Volume 11.6 fL (7.4-10.4) Neutrophils (%) (Auto) 50.2 % Lymphocytes (%) (Auto) 38.4 % Monocytes (%) (Auto) 10.6 % Eosinophils (%) (Auto) 0.4 % Basophils (%) (Auto) 0.4 % Neutrophils # (Auto) 1.28 K/uL (1.4-6.5) Lymphocytes # (Auto) 0.98 K/uL (1.2-3.4) Monocytes # (Auto) 0.27 K/uL (0.11-0.59) Eosinophils # (Auto) 0.01 K/uL (0-0.5) Basophils # (Auto) 0.01 K/uL (0-0.2) RDW Standard Deviation 42.5 fL (36.4-46.3) RDW Coefficient of Variation 14.4 % (11.5-14.5) Immature Granulocyte % (Auto) 0.0 % Immature Granulocyte # (Auto) 0.00 K/uL (0.00-0.02) Anion Gap 6.0 mmol/L (3-11) Est Creatinine Clear Calc Drug Dose 100.2 ml/min Estimated GFR () 110.7 Estimated GFR (Non- 95.5 BUN/Creatinine Ratio 12.7 (10-20) Calcium Level 8.1 mg/dl (8.5-10.1) Total Bilirubin 0.7 mg/dl (0.2-1) Direct Bilirubin 0.2 mg/dl (0-0.2) Aspartate Amino Transf (AST/SGOT) 34 U/L (15-37) Alanine Aminotransferase (ALT/SGPT) 67 U/L (12-78) Alkaline Phosphatase 47 U/L (45-117) Total Protein 7.0 gm/dl (6.4-8.2) Albumin 3.5 gm/dl (3.4-5.0) Lipase 179 U/L (73-393) Bedside Lactic Acid Venous 0.52 mmol/L (0.90-1.70) Urine Color YELLOW Urine Appearance CLEAR (CLEAR) Urine pH 6.5 (4.5-7.5) Urine Specific [place] 1.019 (1.000-1.030) Urine Protein NEG (NEG) Urine Glucose (UA) NEG (NEG) Urine Ketones 1+ (NEG) Urine Occult Blood NEG (NEG) Urine Nitrite NEG (NEG) Urine Bilirubin NEG (NEG) Urine Urobilinogen NEG (NEG) Urine Leukocyte Esterase NEG (NEG) Medications Administered Medications (Trade) Dose Ordered Sig/Tigre Route Start Time Stop Time Status Last Admin Dose Admin Sodium Chloride 1,000 ml @ 999 mls/hr Q1H1M STAT IV 08/27/17 22:26 08/27/17 23:26 DC 08/27/17 23:06 999 MLS/HR Ketorolac Tromethamine (Toradol Inj) 30 mg NOW STAT IV 08/27/17 22:26 08/27/17 22:30 DC 08/27/17 23:05 30 MG Ondansetron HCl (Zofran Inj) 4 mg NOW STAT IV 08/27/17 22:26 08/27/17 22:31 DC 08/27/17 23:04 4 MG Morphine Sulfate (MoRPHine SULFATE INJ) 4 mg NOW STAT IV 08/27/17 23:53 08/27/17 23:55 DC 08/28/17 00:45 4 MG Levofloxacin (Levaquin Tab) 500 mg NOW ONCE PO 08/28/17 02:45 08/28/17 02:46 DC 08/28/17 02:52 500 MG Oxycodone HCl (Roxicodone Immediate Rel 5MG Home Pack) 1 homepack UD ONCE PO 08/28/17 02:45 08/28/17 02:46 DC 08/28/17 02:52 1 HOMEPACK Ondansetron HCl (ZOFRAN ODT 4MG Home Pack) 1 homepack UD ONCE PO 08/28/17 02:45 08/28/17 02:46 DC 08/28/17 02:52 1 HOMEPACK ED Course Prior records/ancillary studies reviewed. Triage Nursing notes reviewed. The patient's history was concerning for abdominal pain. Differential diagnosis: Etiologies such as appendicitis, epididymitis, torsion, cyst, diverticulitis, PUD, biliary pathology, UTI, pancreatitis, obstruction, mesenteric ischemia, aortic pathology, infections, inflammatory bowel disease, renal colic, as well as others were entertained. Physical examination findings: As above. ER treatment provided: Toradol, IV fluids On reassessment the patient felt better. Diagnostics interpreted by me: The labs revealed no worrisome leukocytosis. Negative urine Imaging studies: CT negative for diverticulitis, ultrasound concerning for possible orchitis of the right testicle per radiology Exam and history seem consistent with epididymitis. Patient was exquisitely tender on the left epididymis. He has pain that radiates to his left lower quadrant. He is in a monogamous relationship. I do not feel he is at risk for STI's. He was advised to take medications as directed and to follow- up with urology or family care in a few days or here in the ER sooner for fevers , pain, vomiting, worsening signs or symptoms or as needed. He was advised to follow-up as scheduled with GI for his colonoscopy this month. Patient does not have acute abdomen on exam. He is afebrile and nontoxic. By the evaluation outlined above emergent etiologies such as appendicitis, diverticulitis, PUD, biliary pathology, UTI, pancreatitis, obstruction, mesenteric ischemia, aortic pathology, inflammatory bowel disease, renal colic , as well as others were deemed relatively unlikely. The pt informed about the findings as listed above. All questions were answered and pleased with the treatment. Return instructions were outlined and the patient was discharged in stable condition. Outpatient prescription management: Levaquin Referral: The patient was referred back to their primary care physician and/or urology for follow-up in 2 to 3 days for a recheck of the current condition. Case reviewed with my attending The chart was completed utilizing [employer] Speech voice recognition software. Grammatical errors, random word insertions, pronoun errors, and incomplete sentences are an occassional consequence of this system due to software limitations, ambient noise, and hardware issues. Any formal questions or concerns about the content, text, or information contained within the body of this dictation should be directly addressed to the physician household assistant for clarification. Medical Decision As above Medication Reconcilliation Current Medication List: was personally reviewed by me Blood Pressure Screening Patient's blood pressure: Elevated blood pressure Blood pressure disposition: Elevated BP felt to be situational Impression Primary Impression: Acute epididymitis Departure Information Prescriptions Levofloxacin (Levaquin) 500 Mg Tab 500 MG PO DAILY for 10 Days, #10 TAB Prov: Emily Cormier ., KIRSTEN 08/28/17 Referrals Alex Frazier M.D.([facility]) (PCP) Patient Instructions [facility]
--- NOTE | 2017-08-28 08:05 | DIAGNOSTIC IMAGING REPORT ---
ULTRASOUND TESTES AND SCROTUM CLINICAL HISTORY: Left testicular pain. COMPARISON STUDY: Scrotal ultrasound dated 02/14/2011. TECHNIQUE: Real-time, grayscale, and color Doppler sonography of the testes and scrotum is performed. Images are reviewed in the transverse and longitudinal planes. FINDINGS: The testes are normal in size. The right testis is heterogeneous in echotexture, similar in appearance to the 02/14/2011 examination. The right testis measures 4.0 x 1.8 x 2.3 cm and the left testis measures 4.1 x 2.1 x 2.9 cm. No intratesticular mass is seen. The right testis appears slightly hyperemic. Normal Doppler waveforms are identified in both testes. The epididymal heads are normal in appearance. The right epididymal head measures 0.6 cm in length and the left epididymal head measures 0.8 cm in length. Small epididymal head cysts measure up to 4 mm. No hydrocele is seen. Small bilateral varicoceles measure up to 3 mm. IMPRESSION: 1. The right testis appears heterogeneous in echotexture and hyperemic on color imaging. Correlate clinically for evidence of orchitis. The right testis also appear heterogeneous on the 02/14/2011 examination. 2. The left testis is normal in appearance. 3. Small bilateral varicoceles. Electronically signed by: Dave Tan M.D. 08/28/2017 8:04 AM Dictated Date/Time: 08/28/2017 8:01 AM
--- NOTE | 2017-08-28 08:34 | DIAGNOSTIC IMAGING REPORT ---
CT SCAN OF THE ABDOMEN AND PELVIS WITH IV CONTRAST CLINICAL HISTORY: Left lower quadrant abdominal pain. COMPARISON STUDY: Abdominal CT dated 06/16/2017. TECHNIQUE: Following the IV administration of 119 cc of Optiray 320, CT scan of the abdomen and pelvis is performed from the lung bases to the proximal femora. Images are reviewed in the axial, sagittal, and coronal planes. IV contrast was administered without complication. A dose lowering technique was utilized adhering to the principles of ALARA. CT DOSE: 372.85 mGy.cm FINDINGS: Lung bases: The heart is normal in size and without pericardial effusion. There is a tiny fat-containing right Bochdalek hernia. The lung bases are clear noting dependent atelectasis. Liver: The contrast-enhanced liver is normal in size, contour, and attenuation. There is no intrahepatic biliary ductal dilatation. The hepatic veins and portal veins are patent. Gallbladder: Unremarkable. Spleen: The spleen is enlarged, measuring 15.6 cm in length. Pancreas: Unremarkable. Adrenal glands: Unremarkable. Kidneys: The contrast enhanced kidneys are normal in size and without hydronephrosis. The kidneys enhance symmetrically. Abdominal vasculature: The abdominal aorta is normal in course and caliber. Bowel: There is mild colonic diverticulosis. Mild stranding is seen adjacent to the sigmoid colon, likely presenting mild acute sigmoid diverticulitis. There is no evidence of abscess. No bowel obstruction is seen. The appendix is well-visualized and normal. Peritoneum: There is no intraperitoneal free air or abdominal ascites. There is a fat-containing umbilical hernia. Lymphadenopathy: None. Pelvic viscera: The bladder, prostate, and seminal vesicles are normal as visualized. Skeletal structures: No lytic or blastic lesions are seen. There are postoperative changes from L4 to L5 spinal fusion. IMPRESSION: 1. There is mild colonic diverticulosis. Findings suggest mild acute sigmoid diverticulitis. There is no free air or evidence of abscess. 2. Splenomegaly. 3. Additional findings as above. Electronically signed by: Dave Tan M.D. 08/28/2017 8:32 AM Dictated Date/Time: 08/28/2017 8:25 AM
--- NOTE | 2017-08-28 09:00 | DIAGNOSTIC IMAGING REPORT ---
ULTRASOUND KIDNEYS AND BLADDER CLINICAL HISTORY: Left groin pain. COMPARISON STUDY: Abdominal CT dated 06/16/2017. TECHNIQUE: Real-time, grayscale, and color flow sonography of the kidneys and bladder is performed. Images are reviewed in the transverse and longitudinal planes. FINDINGS: Kidneys: The kidneys are normal in size and echotexture. The right kidney measures 12.8 x 4.1 x 5.1 cm and the left kidney measures 13.2 x 5.9 x 6.5 cm. There is no hydronephrosis. No shadowing renal calculi are identified. There is no sonographic evidence of contour deforming renal mass lesion. No perinephric fluid is identified. Bladder: The bladder is partially distended and grossly unremarkable. Ureteral jets were not seen. IMPRESSION: Unremarkable sonographic assessment of the kidneys and bladder. Electronically signed by: Dave Tan M.D. 08/28/2017 8:58 AM Dictated Date/Time: 08/28/2017 8:57 AM
--- NOTE | 2017-08-30 16:25 | Pharmacy Progress Note ---
ED Pharmacist Culture FollowUp Date of Service: Aug 30, 2017. Patient was initially contacted by nursing staff over the weekend to relay results of diverticulitis on imaging and to call in a RX of metronidazole 500mg TID X 7 days if the patient continued to be symptomatic. The patient did call back today and I relayed these results and since the patient admitted to continuing to have GI symptoms, I called in a prescription for metronidazole 500mg TID X 7days to [facility]. This plan was again discussed with Dr. Scanlon who is the prescribing provider.
== END 2017-08-28 02:57 | disposition home or self-care (01) ==
LOC: C.EDB 22:17 → C.EDC 08-28 02:57
DX: N45.1 Epididymitis (principal); I10 Essential (primary) hypertension; Z87.19 Personal history of other diseases of the digestive system